=== PATIENT | female | born 2000 | race Caucasian/White ===

== ENCOUNTER 2021-06-17 21:33 | Emergency (ER) | payer MEDICAID ==
[~2021-06-17] VITALS: Ht 157.5 cm; Wt 72.6 kg
[2021-06-17 21:55] VITALS: BP 121/81
[2021-06-17] MEDS ORDERED: KETOROLAC 30 MG/ML VIAL IM ONE (22:40)
[2021-06-17] MEDS ORDERED: IBUP-2213 PO (22:52)
== END 2021-06-17 23:38 | disposition home or self-care (01) ==
LOC: MED 21:33
DX: S93.401A Sprain of unspecified ligament of right ankle, initial encounter (principal); Z79.899 Other long term (current) drug therapy; W10.9XXA Fall (on) (from) unspecified stairs and steps, initial encounter; Y93.01 Activity, walking, marching and hiking; Y92.89 Other specified places as the place of occurrence of the external cause; Y99.8 Other external cause status
CPT/HCPCS: 73610; 81025; 96372; 99283; J1885